=== PATIENT | female | born 1985 | race Two or more races ===

== ENCOUNTER 2017-08-13 13:57 | Emergency (ER) | payer MEDICAID ==
[~2017-08-13] VITALS: Ht 172.7 cm; Wt 86.2 kg
[~2017-08-13 13:57] MED LIST: ACETAMINOPHEN500 M3 ORAL; IBUPROFEN600 MG ORAL
[2017-08-13] MEDS ORDERED: FLONASE ALLERG9.9 ML NS (14:13)
[2017-08-13 14:14] VITALS: BP 128/85
[2017-08-13] MEDS ORDERED: Ketorolac 30mg Inj IV ONE (14:45)
[2017-08-13] MEDS ORDERED: Morphine Sulfate 2mg/ml Inj IVP ONE (14:45)
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
[2017-08-13 16:29] VITALS: BP 118/79
[2017-08-13] MEDS ORDERED: IBUPROFEN600 MG ORAL (16:39)
[2017-08-13] MEDS ORDERED: TRAMADOL HCL50 MG ORAL (16:39)
[2017-08-13] MEDS ORDERED: ROBAXIN500 MG PO (16:39)
[2017-08-13 16:48] VITALS: BP 118/79
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
== END 2017-08-13 16:54 | disposition home or self-care (01) ==
LOC: EMR 15:34
DX: F07.81 Postconcussional syndrome (principal); S13.4XXA Sprain of ligaments of cervical spine, initial encounter; S39.012A Strain of muscle, fascia and tendon of lower back, initial encounter; F17.200 Nicotine dependence, unspecified, uncomplicated; Z91.040 Latex allergy status; V43.52XA Car driver injured in collision with other type car in traffic accident, initial encounter; Y92.410 Unspecified street and highway as the place of occurrence of the external cause
CPT/HCPCS: 70450; 96374; 96375; 99284; J1885; J2270; J2405